=== PATIENT | male | born 1975 | race Caucasian/White ===

== ENCOUNTER 2017-12-13 18:19 | Emergency (ER) | payer OTHER ==
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
[2017-12-13 19:51] LABS: CHLORIDE,CL 102 mmol/L (98-107); SODIUM,NA 137 mmol/L (136-148)
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
--- NOTE | 2017-12-15 14:28 | CR ---
EXAM DATE: 12/13/17 PATIENT'S AGE: 42 Patient: KARISSA JAIMES Facility: [place], [place] Site . Site : 1975 Study: XRay Chest [id number]/29/2018 6:50:45 PM Ordering Physician: Adrian Martinez Final Report: Indication: Trauma Technique: Chest 1 view Comparison: None Findings/Impression: Cardiovascular and mediastinum: Heart size and vasculature are normal in caliber and appearance. Mediastinum is within normal limits. Lungs and pleural space: Lungs are clear. No sign of infiltrate or mass. No sign of pleural effusion. No pneumothorax. Bones and soft tissues: No significant findings. Dictated by Grant Knight MD @ 12/13/2017 7:07:39 PM Dictated by: Grant Knight MD @ 12/13/2017 19:07:43 (Electronic Signature) Report Signed by Proxy. [facility]ENTER[facility]rek
--- NOTE | 2017-12-15 14:29 | CR ---
EXAM DATE: 12/13/17 PATIENT'S AGE: 42 Patient: KARISSA JAIMES Facility: [place], [place] Site . Site : 1975 Study: XRay Pelvis [id number]/29/2018 6:51:19 PM Ordering Physician: Adrian Martinez Final Report: Indication: Injury and pain Technique: Pelvis 1 views Comparison: None Findings: Bones: Alignment is normal. No fractures or bone lesions. Joint spaces: Unremarkable. Soft tissues: Unremarkable. Impression: No sign of acute injury. Dictated by Sloan Mcdaniel MD @ Dec 13 2017 7:06PM (Electronic Signature) Report Signed by Proxy. BUSHRA
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
--- NOTE | 2017-12-15 14:30 | CR ---
EXAM DATE: 12/13/17 PATIENT'S AGE: 42 Patient: KARISSA JAIMES Facility: [place], [place] Site . Site : 1975 Study: XRay Spine Lumbar [id number]/29/2018 6:53:48 PM Ordering Physician: Adrian Martinez Final Report: INDICATION: Trauma TECHNIQUE: Lumbar spine 3 view. COMPARISON: None available FINDINGS/IMPRESSION: Unremarkable lumbar spine alignment. Preserved vertebral body heights. Mild narrowing of the L5-S1 disk space. Small osteophytes in the lower lumbar spine. Anatomically aligned facets. Patent sacroiliac joints. Dictated by Grant Knight MD @ 12/13/2017 7:36:34 PM Dictated by: Grant Knight MD @ 12/13/2017 19:36:41 (Electronic Signature) Report Signed by Proxy. [facility] SYSTEM[facility]
== END 2017-12-13 19:55 | disposition home or self-care (01) ==
LOC: MW.ED 18:19
DX: M54.5 Low back pain (principal); M25.551 Pain in right hip; M54.2 Cervicalgia; V57.5XXA Driver of pick-up truck or van injured in collision with fixed or stationary object in traffic accident, initial encounter
CPT/HCPCS: 36415; 70450; 70450-26; 71045; 71045-26; 72100; 72100-26; 72125; 72125-26; 72170; 72170-26; 73030-26-RT; 73030-RT; 80053; 80305-QW; 81001; 82550; 84484; 85025; 93005; 99284; 99285-25